=== PATIENT | female | born 1970 ===

== ENCOUNTER 2018-05-30 17:33 | Emergency (ER) | payer SELFPAY ==
[2018-05-30 17:46] VITALS: BMI 20.7
[2018-05-30 17:48] VITALS: BP 131/77; PULSE 73; RESP 16; TEMP 98; O2SAT 100
--- NOTE | 2018-05-30 18:25 | C.PDOC ---
History Of Present Illness 47 year old female presents to the ED complaining of generalized body aches since this morning. She denies any associated fever, nausea, vomiting, chest pain, cough, sore throat, SOB, abdominal pain, or diarrhea. States she took some ibuprofen which provided temporary relief but now the pain has recurred. Time Seen by Provider: 05/30/18 17:52 Chief Complaint (Nursing): Flu-like Symptoms History Per: Patient History/Exam Limitations: no limitations Onset/Duration Of Symptoms: Hrs Current Symptoms Are (Timing): Still Present Past Medical History Reviewed: Historical Data, Nursing Documentation, Vital Signs Vital Signs: Last Vital Signs Temp 98.0 F 05/30/18 17:45 Pulse 73 05/30/18 17:45 Resp 16 05/30/18 17:45 BP 131/77 05/30/18 17:45 Pulse Ox 100 05/30/18 17:45 Other Surgeries: Kidney removal, ovarian cyst removal Family History: States: Unknown Family Hx - Social History Hx Alcohol Use: No Hx Substance Use: No - Immunization History Hx Tetanus Toxoid Vaccination: No Hx Influenza Vaccination: No Hx Pneumococcal Vaccination: No Review Of Systems Except As Marked, All Systems Reviewed And Found Negative. Constitutional: Negative for: Fever, Chills Cardiovascular: Negative for: Chest Pain Respiratory: Negative for: Cough, Shortness of Breath Gastrointestinal: Negative for: Nausea, Vomiting, Abdominal Pain, Diarrhea Musculoskeletal: Positive for: Other (Generalized body aches). Negative for: Back Pain Skin: Negative for: Rash Neurological: Negative for: Weakness, Headache, Dizziness Physical Exam - Physical Exam Appears: Non-toxic, No Acute Distress Skin: Warm, Dry, No Rash Head: Atraumatic, Normacephalic Eye(s): bilateral: Normal Inspection Oral Mucosa: Moist Neck: Normal ROM Chest: Symmetrical Cardiovascular: Rhythm Regular, No Murmur Respiratory: Normal Breath Sounds, No Rales, No Rhonchi, No Wheezing Extremity: Bilateral: Atraumatic, Normal Color And Temperature, Normal ROM Pulses: Left Radial: Normal, Right Radial: Normal Neurological/Psych: Oriented x3, Normal Speech ED Course And Treatment O2 Sat by Pulse Oximetry: 100 (RA) Pulse Ox Interpretation: Normal Medical Decision Making Medical Decision Making: Impression: Viral illness Patient reports no other symptoms other than body aches which began today. Vitals and exam unremarkable. Plan: Patient is stable for discharge home. Counseled regarding diagnosis and course of discharge. Disposition Counseled Patient/Family Regarding: Diagnosis, Need For Followup - Disposition Disposition: HOME/ ROUTINE Disposition Time: 18:25 Condition: GOOD Additional Instructions: YOSHI ROMERO, thank you for letting us take care of you today. Your provider was Elli Osborne MD and you were treated for BODY PAIN. The emergency medical care you received today was directed at your acute symptoms. If you were prescribed any medication, please fill it and take as directed. It may take several days for your symptoms to resolve. Return to the Emergency Department if your symptoms worsen, do not improve, or if you have any other problems. Please contact your doctor or call one of the physicians/clinics you have been referred to that are listed on the Patient Visit Information form that is included in your discharge packet. Bring any paperwork you were given at d ischarge with you along with any medications you are taking to your follow up visit. Our treatment cannot replace ongoing medical care by a primary care provider outside of the emergency department. Thank you for allowing the [facility] team to be part of your care today. If you had an X-Ray or CT scan: A Radiologist will review the ED reading if any change in treatment is needed we will contact you. If you had a blood, urine, or wound culture: It will take several days for the results, if any change in treatment is needed we will contact you. If you had an STI test: It will take 48 hours for the results. Please call after 1 week if you have not heard back. Instructions: Viral Syndrome (DC) Forms: [facility] (Maltese), Work Excuse Print Language: [place] - Clinical Impression Clinical Impression: Influenza-like illness - Scribe Statement The provider has reviewed the documentation as recorded by the Vania Figueroa Provider Attestation: All medical record entries made by the Vania were at my direction and personally dictated by me. I have reviewed the chart and agree that the record accurately reflects my personal performance of the history, physical exam, medical decision making, and the department course for this patient. I have also personally directed, reviewed, and agree with the discharge instructions and disposition.
== END 2018-05-30 19:16 | disposition home or self-care (01) ==
LOC: C.ER 17:33
DX: J11.1 Influenza due to unidentified influenza virus with other respiratory manifestations (principal)